=== PATIENT | female | born 1975 | race Caucasian/White ===

== ENCOUNTER 2017-03-23 18:52 | Emergency (ER) | payer OTHER ==
[~2017-03-23] VITALS: Ht 149.9 cm; Wt 83.3 kg
[~2017-03-23 18:52] MED LIST: AMITRIPTYLINE H10 MG PO; ATENOLOL100 MG PO; BENTYL20 MG PO; BYDUREON; Elavil PO; Flagyl PO; GEMFIBROZIL600 MG PO; METFORMIN HCL500 MG PO; OMEPRAZOLE40 M1 PO; PRESTIQ PO; PRISTIQ50 MG PO; QUETIAPINE FUM300 MG PO; TOPROL XL100 MG PO; TRILIPIX135 MG PO; Toprol XL PO; Tricor PO
[2017-03-23 19:39] LABS: ADD MIUA? YES; BILIRUBIN NEGATIVE; BLOOD SMALL; COLOR YELLOW ((YELLOW)); GLUCOSE (STRIP) NEGATIVE; KETONES NEGATIVE; LEUKOCYTES NEGATIVE; NITRITE NEGATIVE; PROTEIN (STRIP) 30; SPECIFIC GRAVITY 1.018 (1.000-1.030); UROBILINOGEN 0.2 MG/DL (0.2-1.0)
[2017-03-23 19:44] LABS: BASOPHIL COUNT 0.1 K/uL (0-0.1); EOSINOPHIL (%) 2.6 % (0-5); EOSINOPHIL COUNT 0.4 K/uL (0-0.3); HEMATOCRIT 38.9 % (36.0-46.0); IMMATURE GRANULOCYTE (%) 0.5 % (0.0-0.7); IMMATURE GRANULOCYTE COUNT 0.1 K/uL; INSTRUMENT ABS NEUTROPHIL CT 8.7 K/uL; LYMPHOCYTE COUNT 4.6 K/uL (1.0-2.8); MCH 29.1 PG (29.0-34.0); MCHC 33.4 G/DL (30.0-36.0); MEAN PLAT.VOLUME 10.1 uM^3 (9.5-12.4); MONOCYTE (%) 7.5 % (3-12); MONOCYTE COUNT 1.1 K/uL (0-0.8); NEUTROPHIL COUNT 8.7 K/uL (1.8-6.4); PLATELET COUNT 512 K/uL (156-360); RBC DIS.WIDTH-SD 40.9 % (39-53); RED BLOOD COUNT 4.47 M/uL (3.80-5.20); WHITE BLOOD COUNT 14.9 K/uL (4.1-10.2)
[2017-03-23 19:46] LABS: BACTERIA RARE /HPF; EPITHELIAL CELLS 1+ /HPF; MUCUS TRACE /LPF
[2017-03-23 19:54] LABS: CHLORIDE 104 mEq/L (99-109); POTASSIUM 4.4 mEq/L (3.7-5.4); SODIUM 142 mEq/L (136-147)
[2017-03-23 19:55] LABS: GLUCOSE 106 mg/dL (70-99)
[2017-03-23 19:57] LABS: ANION GAP 12 MEQ/L (2-14)
[2017-03-23 19:59] LABS: GFR ESTIMATE (CALCULATED) > 59 mL/min/
[2017-03-23 20:00] LABS: UREA NITROGEN (BUN) 17 mg/dL (9-23)
[2017-03-23] MEDS ORDERED: TRAMADOL HCL50 MG PO (21:25)
[2017-03-23] MEDS ORDERED: CIPRO500 MG PO (21:25)
[2017-03-23 21:32] VITALS: BP 133/76
== END 2017-03-23 21:33 | disposition home or self-care (01) ==
LOC: EME 18:52
PROVIDERS: Physician Assistant
DX: N20.2 Calculus of kidney with calculus of ureter (principal); R00.0 Tachycardia, unspecified; K76.0 Fatty (change of) liver, not elsewhere classified; Z87.442 Personal history of urinary calculi; Z90.710 Acquired absence of both cervix and uterus; Z87.891 Personal history of nicotine dependence
CPT/HCPCS: 74176; 80048; 81003; 84702; 85025; 99281; 99284

== ENCOUNTER 2018-03-06 05:55 | Emergency (ER) | payer OTHER ==
[~2018-03-06] VITALS: Ht 149.9 cm; Wt 86.8 kg
[~2018-03-06 05:55] MED LIST changes: +CIPRO500 MG PO; +TRAMADOL HCL50 MG PO
[2018-03-06 06:40] LABS: HEMATOCRIT 35.7 % (36.0-46.0); HEMOGLOBIN 11.9 G/DL (11.9-15.5); MCH 28.2 PG (29.0-34.0); MCHC 33.3 G/DL (30.0-36.0); MCV 84.6 FL (83-99); PLATELET COUNT 431 K/uL (156-360); RBC DIS.WIDTH-CV 14.1 % (11.8-14.6); RBC DIS.WIDTH-SD 43.1 % (39-53); RED BLOOD COUNT 4.22 M/uL (3.80-5.20); WHITE BLOOD COUNT 11.3 K/uL (4.1-10.2)
[2018-03-06 07:24] LABS: QUANTITATIVE HCG < 4.0 MIU/ML
[2018-03-06 07:37] LABS: APPEARANCE SL.HAZY ((CLEAR)); BILIRUBIN NEGATIVE; BLOOD NEGATIVE; COLOR YELLOW ((YELLOW)); GLUCOSE (STRIP) NEGATIVE; KETONES NEGATIVE; LEUKOCYTES NEGATIVE; NITRITE NEGATIVE; PROTEIN (STRIP) 100; SPECIFIC GRAVITY 1.027 (1.000-1.030); UROBILINOGEN 0.2 MG/DL (0.2-1.0)
[2018-03-06 07:44] LABS: ALBUMIN 4.5 G/DL (3.2-4.8); ALKALINE PHOSPHATASE 63 IU/L (3-129); ALT (GPT) 32 IU/L (3-49); AST (GOT) 23 IU/L (2-34); CHLORIDE 102 MEQ/L (99-109); CREATININE 0.7 MG/DL (0.6-1.3); GFR ESTIMATE (CALCULATED) > 59 mL/min/; GLUCOSE 129 mg/dL (70-99); POTASSIUM 4.3 MEQ/L (3.7-5.4); SODIUM 138 MEQ/L (136-147); TOTAL BILIRUBIN 0.3 MG/DL (0.0-1.0); TOTAL PROTEIN 7.5 G/DL (6.4-8.3); UREA NITROGEN (BUN) 17 mg/dL (9-23)
[2018-03-06 07:48] LABS: BACTERIA RARE /HPF; CALCIUM OXALATE CRYSTALS 2+ /HPF; EPITHELIAL CELLS 1+ /HPF; MUCUS 1+ /LPF; UCUL ADDED? NO; WHITE BLOOD CELLS 0-5 /HPF (0-5)
[2018-03-06] MEDS ORDERED: FLOMAX0.4 MG PO (09:13)
[2018-03-06] MEDS ORDERED: PERCOCET 5/31 TABLET PO (09:13)
[2018-03-06 09:30] VITALS: BP 94/80
[2018-03-08] MEDS ORDERED: ATIVAN0.5 MG PO (09:21)
[2018-03-08] MEDS ORDERED: CONTRAVE ER 8-1 EACH PO (09:23)
[2018-03-08] MEDS ORDERED: ZOLOFT50 MG PO (09:24)
[2018-03-08] MEDS ORDERED: FLOMAX0.4 MG PO (09:24)
[2018-03-08] MEDS ORDERED: VITAMIN D31000 UNIT PO (09:25)
[2018-03-08] MEDS ORDERED: ALEVE220 M2 PO (09:25)
[2018-03-08] MEDS ORDERED: MULTIPLE VITAM1 EAC4 PO (09:26)
[2018-03-08] MEDS ORDERED: NON-ASPIRIN PA500 M1 PO (09:26)
[2018-03-08] MEDS ORDERED: LOPID600 MG PO (09:28)
== END 2018-03-06 09:35 | disposition home or self-care (01) ==
LOC: EME 05:55
PROVIDERS: Nurse Practitioner Family
DX: N13.2 Hydronephrosis with renal and ureteral calculous obstruction (principal); Z87.442 Personal history of urinary calculi; G43.909 Migraine, unspecified, not intractable, without status migrainosus; F32.9 Major depressive disorder, single episode, unspecified; Z79.84 Long term (current) use of oral hypoglycemic drugs; Z87.891 Personal history of nicotine dependence; Z90.710 Acquired absence of both cervix and uterus; Z88.8 Allergy status to other drugs, medicaments and biological substances; Z88.1 Allergy status to other antibiotic agents
CPT/HCPCS: 74177; 80053; 81003; 84702; 85027; 99281; 99285; J3010; J7030

== ENCOUNTER 2018-03-13 11:03 | Day surgery (SDC) | payer OTHER ==
[~2018-03-13] VITALS: Ht 149.9 cm; Wt 88.9 kg
[~2018-03-13 11:03] MED LIST changes: +ALEVE220 M2 PO; +ATIVAN0.5 MG PO; +CONTRAVE ER 8-1 EACH PO; +FLOMAX0.4 MG PO; +LOPID600 MG PO; +MULTIPLE VITAM1 EAC4 PO; +NON-ASPIRIN PA500 M1 PO; +PERCOCET 5/31 TABLET PO; +VITAMIN D31000 UNIT PO; +ZOLOFT50 MG PO
[2018-03-13 11:56] VITALS: BP 121/60
[2018-03-13 14:56] VITALS: BP 113/54
[2018-03-13 15:46] VITALS: BP 106/54
== END 2018-03-13 16:15 | disposition home or self-care (01) ==
LOC: SDC 11:03
PROVIDERS: Urology
PROC: 0T768DZ Dilation of Right Ureter with Intraluminal Device, Via Natural or Artificial Opening Endoscopic (ICD-10-PCS; principal; 2018-03-13)
PROC: 0TF68ZZ Fragmentation in Right Ureter, Via Natural or Artificial Opening Endoscopic (ICD-10-PCS; principal; 2018-03-13)
DX: N20.2 Calculus of kidney with calculus of ureter (principal); E11.9 Type 2 diabetes mellitus without complications; Z79.84 Long term (current) use of oral hypoglycemic drugs; Z88.0 Allergy status to penicillin
CPT/HCPCS: 74420; 82948; 93005; C2625; J0690; J1100; J1170; J1885; J2250; J3010

== ENCOUNTER 2018-04-13 09:32 | Emergency (ER) | payer OTHER ==
[~2018-04-13] VITALS: Ht 149.9 cm; Wt 89.4 kg
[2018-04-13 10:13] LABS: HEMATOCRIT 35.3 % (36.0-46.0); HEMOGLOBIN 11.6 G/DL (11.9-15.5); MCH 28.2 PG (29.0-34.0); MCHC 32.9 G/DL (30.0-36.0); MCV 85.7 FL (83-99); PLATELET COUNT 382 K/uL (156-360); RBC DIS.WIDTH-SD 43.8 % (39-53); RED BLOOD COUNT 4.12 M/uL (3.80-5.20); WHITE BLOOD COUNT 9.6 K/uL (4.1-10.2)
[2018-04-13 10:23] LABS: CHLORIDE 102 mEq/L (99-109); POTASSIUM 4.2 mEq/L (3.7-5.4); SODIUM 137 mEq/L (136-147)
[2018-04-13 10:25] LABS: GLUCOSE 137 mg/dL (70-99)
[2018-04-13 10:29] LABS: CREATININE 0.8 mg/dL (0.6-1.3); GFR ESTIMATE (CALCULATED) > 59 mL/min/
[2018-04-13 10:30] LABS: UREA NITROGEN (BUN) 12 mg/dL (9-23)
[2018-04-13 11:14] LABS: APPEARANCE CLOUDY ((CLEAR)); BILIRUBIN NEGATIVE; BLOOD LARGE; COLOR YELLOW ((YELLOW)); GLUCOSE (STRIP) NEGATIVE; KETONES NEGATIVE; LEUKOCYTES NEGATIVE; NITRITE NEGATIVE; PROTEIN (STRIP) 100; SPECIFIC GRAVITY 1.024 (1.000-1.030); UROBILINOGEN 0.2 MG/DL (0.2-1.0)
[2018-04-13 11:50] LABS: RED BLOOD CELLS 30-40 /HPF (0-5)
[2018-04-13 11:51] LABS: EPITHELIAL CELLS 1+ /HPF; MUCUS NONE SEEN /LPF; WHITE BLOOD CELLS NONE SEEN /HPF (0-5)
[2018-04-13 11:52] LABS: BACTERIA RARE /HPF; UCUL ADDED? NO
[2018-04-13] MEDS ORDERED: PERCOCET 5/31 TABLET PO (13:01)
[2018-04-13] MEDS ORDERED: FLOMAX0.4 MG PO (13:01)
[2018-04-13 13:10] VITALS: BP 112/64
== END 2018-04-13 13:41 | disposition home or self-care (01) ==
LOC: EME 09:32
DX: N13.2 Hydronephrosis with renal and ureteral calculous obstruction (principal); Z87.442 Personal history of urinary calculi; Z90.710 Acquired absence of both cervix and uterus; Z79.84 Long term (current) use of oral hypoglycemic drugs; Z87.891 Personal history of nicotine dependence
CPT/HCPCS: 74176; 80048; 81003; 85027; 99281; 99284; J3010; J7040

== ENCOUNTER 2018-06-01 23:35 | Emergency (ER) | payer OTHER ==
[~2018-06-01] VITALS: Ht 149.9 cm; Wt 88.9 kg
[2018-06-02 00:36] LABS: BASOPHIL (%) 0.4 % (0-1); BASOPHIL COUNT 0.1 K/uL (0-0.1); EOSINOPHIL (%) 2.4 % (0-5); EOSINOPHIL COUNT 0.3 K/uL (0-0.3); HEMATOCRIT 33.4 % (36.0-46.0); HEMOGLOBIN 11.1 G/DL (11.9-15.5); IMMATURE GRANULOCYTE (%) 0.4 % (0.0-0.7); LYMPHOCYTE (%) 25.6 % (15-42); LYMPHOCYTE COUNT 3.1 K/uL (1.0-2.8); MCHC 33.2 G/DL (30.0-36.0); MCV 84.3 FL (83-99); MONOCYTE (%) 8.1 % (3-12); NEUTROPHIL (%) 63.1 % (45-76); NEUTROPHIL COUNT 7.6 K/uL (1.8-6.4); PLATELET COUNT 435 K/uL (156-360); RBC DIS.WIDTH-CV 13.7 % (11.8-14.6); RBC DIS.WIDTH-SD 42.4 % (39-53); RED BLOOD COUNT 3.96 M/uL (3.80-5.20); WHITE BLOOD COUNT 12.1 K/uL (4.1-10.2)
[2018-06-02 00:58] LABS: ALBUMIN 3.9 G/DL (3.2-4.8); CHLORIDE 103 MEQ/L (99-109); DIRECT BILIRUBIN 0.1 mg/dL (0.0-0.3); POTASSIUM 3.8 MEQ/L (3.7-5.4); SODIUM 139 MEQ/L (136-147); TOTAL BILIRUBIN 0.2 MG/DL (0.0-1.0)
[2018-06-02 01:04] LABS: ALKALINE PHOSPHATASE 76 IU/L (3-129); ALT (GPT) 25 IU/L (3-49); AST (GOT) 14 IU/L (2-34); CREATININE 0.7 MG/DL (0.6-1.3); GFR ESTIMATE (CALCULATED) > 59 mL/min/; GLUCOSE 128 mg/dL (70-99); LIPASE 24 U/L (1.0-51.0); TOTAL PROTEIN 6.9 G/DL (6.4-8.3); UREA NITROGEN (BUN) 20 mg/dL (9-23)
[2018-06-02 01:44] LABS: APPEARANCE SL.HAZY ((CLEAR)); BILIRUBIN NEGATIVE; BLOOD MODERATE; COLOR YELLOW ((YELLOW)); GLUCOSE (STRIP) NEGATIVE; KETONES NEGATIVE; LEUKOCYTES TRACE; NITRITE NEGATIVE; PROTEIN (STRIP) 30; SPECIFIC GRAVITY 1.027 (1.000-1.030)
[2018-06-02 01:47] LABS: BACTERIA NONE SEEN /HPF; EPITHELIAL CELLS RARE /HPF; MUCUS 2+ /LPF; RED BLOOD CELLS TNTC /HPF (0-5)
[2018-06-02] MEDS ORDERED: MOTRIN800 MG PO (02:07)
[2018-06-02] MEDS ORDERED: KEFLEX500 MG PO (02:07)
[2018-06-02] MEDS ORDERED: PYRIDIUM200 MG PO (02:07)
[2018-06-02 02:34] VITALS: BP 134/84
== END 2018-06-02 02:36 | disposition home or self-care (01) ==
LOC: EME 23:35
PROVIDERS: Physician Assistant
DX: N30.01 Acute cystitis with hematuria (principal); G43.909 Migraine, unspecified, not intractable, without status migrainosus; Z87.891 Personal history of nicotine dependence; Z87.442 Personal history of urinary calculi; Z88.8 Allergy status to other drugs, medicaments and biological substances; Z88.1 Allergy status to other antibiotic agents
CPT/HCPCS: 80048; 80076; 81003; 83690; 85025; 87086; 99281; 99284